=== PATIENT | male | born 1955 | race Hispanic/Latino ===

== ENCOUNTER 2023-08-03 09:17 | Day surgery (SDC) | payer OTHER ==
[2023-08-01 12:05] VITALS: BP 136/63; PULSE 72; RESP 17
[2023-08-01 12:13] LABS: BASOPHILS # (AUTO) 0.07 K/uL (0.00-0.20); EOSINOPHILS # (AUTO) 0.23 K/uL (0.00-0.70); EOSINOPHILS % (AUTO) 3.4 % (0.0-8.0); HEMATOCRIT 46.2 % (42-54); IMMATURE GRANULOCYTE ABSOLUTE 0.04 K/uL (0-1); LYMPHOCYTES # (AUTO) 2.3 K/uL (1.0-4.8); LYMPHOCYTES % (AUTO) 33.8 % (21.0-51.0); MEAN CORPUSCULAR HEMOGLOBIN 31.4 pg (27.0-33.0); MEAN CORPUSCULAR HGB CONC 32.9 g/dL (32.0-36.0); MEAN CORPUSCULAR VOLUME 95.5 fL (79-99); MONOCYTES # (AUTO) 0.8 K/uL (0.1-1.0); MONOCYTES % (AUTO) 11.8 % (3.0-13.0); NEUTROPHILS # (AUTO) 3.4 K/uL (1.8-7.7); NEUTROPHILS % (AUTO) 49.4 % (40.0-77.0); PLATELET COUNT (AUTO) 171 K/uL (130-400); RED BLOOD CELL COUNT(AUTO) 4.84 MIL/uL (4.50-6.20); RED CELL DISTRIBUTION WIDTH 12.7 % (11.0-15.5); WHITE BLOOD COUNT (AUTO) 6.8 K/uL (4.8-10.8)
[2023-08-01 12:17] LABS: APPEARANCE,URINE CLEAR (CLEAR); BILIRUBIN,URINE NEGATIVE (NEGATIVE); COLOR,URINE YELLOW (YELLOW); GLUCOSE, URINE (UA) NEGATIVE (NEGATIVE); KETONES,URINE NEGATIVE (NEGATIVE); LEUKOCYTE ESTERASE ,URINE NEGATIVE Leu/uL (NEGATIVE); NITRATE,URINE NEGATIVE (NEGATIVE); PROTEIN,URINE 30 mg/dL (NEGATIVE); UROBILINOGEN,URINE 0.2 mg/dL (0.2-1.0)
[2023-08-01 12:20] LABS: INR 0.96 (0.85-1.15); PROTHROMBIN TIME 11.2 SEC (9.6-11.6)
[2023-08-01 12:21] LABS: CREATININE 0.8 mg/dL (0.5-1.5); POTASSIUM 4.3 mmol/L (3.5-5.1)
[2023-08-01 12:22] LABS: PARTIAL THROMBOPLASTIN TIME 27.7 SEC (26.3-35.5)
[2023-08-01 12:28] LABS: ADD UA MICROSCOPIC YES
[2023-08-01 12:31] LABS: BACTERIA,URINE RARE /HPF (None Seen); MUCUS,URINE FEW LPF (None Seen); RBC,URINE 0-1 /HPF (0-1); SQUAMOUS EPITHELIAL CELL,UR RARE /HPF (0-2); WBC,URINE 0-1 /HPF (0-1)
[2023-08-01 12:37] LABS: B-TYPE NATRIURETIC PEPTIDE 57 pg/mL (0-100)
[2023-08-03] VITALS (9 sets, daily range): BP systolic 108–139; BP diastolic 54–68; PULSE 62–78; RESP 12–21
[~2023-08-03] VITALS: Ht 172.7 cm; Wt 84.1 kg
[~2023-08-03 09:17] MED LIST: ASPI-1443 PO; ATOR40TA71 PO; FURO20TA4 PO; METO-409 PO; SACU1TAB PO
[2023-08-03] MEDS: 0.9%NACL 1000ML 1,000 ML IV ONE (10:42)
[2023-08-03] MEDS ORDERED: NITROGLYCERIN 50MG VIAL ONE (13:36)
[2023-08-03] MEDS ORDERED: LIDOCAINE HCL 400MG/20ML VIAL ONE (13:36)
[2023-08-03] MEDS ORDERED: HEPARIN 10,000 UNIT/10ML (1,000 UNIT/ML) VIAL ONE (13:36)
[2023-08-03] MEDS ORDERED: IOHEXOL 350 MG/ML 100ML INFUS..BTL IV ONE (13:36)
[2023-08-03] MEDS ORDERED: BIVALIRUDIN 250 MG/VIAL IV ONE (13:36)
[2023-08-03] MEDS ORDERED: IOHEXOL-350 50ML VIAL IV ONE (13:36)
[2023-08-03] MEDS ORDERED: MIDAZOLAM HCL 1 MG/ML 2ML VIAL ONE (13:51)
[2023-08-03] MEDS ORDERED: FENTANYL CITRATE PF 50 MCG/1 ML 2ML VIAL ONE (13:51)
[2023-08-03] MEDS: 0.9%NACL 1000ML 1,000 ML IV SCH (16:43)
[2023-09-02] MEDS ORDERED: METO25TA3 PO (13:10)
== END 2023-08-03 19:30 | disposition home or self-care (01) ==
LOC: DAH 09:17
PROVIDERS: ATTEND Internal Medicine Cardiovascular Disease
DX: I08.0 Rheumatic disorders of both mitral and aortic valves (principal); I42.0 Dilated cardiomyopathy; I27.20 Pulmonary hypertension, unspecified; I11.0 Hypertensive heart disease with heart failure; I50.42 Chronic combined systolic (congestive) and diastolic (congestive) heart failure; Z79.899 Other long term (current) drug therapy; Z79.01 Long term (current) use of anticoagulants; Z98.890 Other specified postprocedural states; Z79.82 Long term (current) use of aspirin
CPT/HCPCS: 80048; 83880; 85025; 85610; 85730; 81001; 36415; 71045; 93005; 96360; 96361; 93460; A4223 ×3; Q9965 ×2; C1769 ×2; C1894 ×2; C1760; C1893; J3010; J3490 ×2; J7030; J2250; J1644; Q9967 ×2; A4215; A6251; A4222; A4221; A4663; A4216; A6258; A4606; 99156; 99157; J0583